=== PATIENT | male | born 1960 | race Caucasian/White ===

== ENCOUNTER 2025-08-10 08:07 | Day surgery (SDC) | payer MEDICARE ==
[~2025-08-10] VITALS: Ht 185.4 cm; Wt 156.9 kg
[~2025-08-10 08:07] MED LIST: ASCO500 PO; ASPI81CH PO; ATEN50 PO; Actos30 MG PO; LISI20 PO; LOVA20 PO; METF500 PO
[2025-08-10 08:35] VITALS: BP 187/89
--- NOTE | 2025-08-10 08:57 | NUR ---
Ambulatory in Day SurgeryPre-Op teaching done. Pt verbalizes understanding. History, Chart, Medications and Allergies reviewed before start of procedure.Patient confirms NPO status and agrees with scheduled surgery. Patient States Post-Procedure ride home has been arranged.
--- NOTE | 2025-08-10 08:57 | NUR ---
PT REPORTS HE HAS UPPER AND LOWER DENTURES AND HE LEFT THEM AT HOME
--- NOTE | 2025-08-10 09:17 | NUR ---
08/10/25 0917 [facility] [place] History, Chart, Medications and Allergies reviewed before start of procedure.MONITOR INTACT WITH CONTINUOUS PULSE OXIMETRY, CONTINUOUS END TITAL CO2, 3-LEAD EKG AND INTERMITTENT BLOOD PRESSURE.3-LEAD EKG REVIEWED WITH PHYSICIAN PRIOR TO START OF PROCEDURE.O2 VIA POM INTACT THROUGHOUT SEDATION/PROCEDURE.See Anesthesia record.
[2025-08-10 09:55] VITALS: BP 148/73
[2025-08-10 10:10] VITALS: BP 154/85
--- NOTE | 2025-08-10 10:17 | NUR ---
DISCHARGE NOTE PT A&OX4, BREATHING RA, VSS, NO COMPLAINTS, TOLERATING PO FLUIDS. PT DRESSED INDEPENDENTLY. Patient up to Ambulate independently. Gait steady. Discharge instructions reviewed with patient. Patient verbalizes understanding. Copy given to patient to take home. Discharged via wheelchair to private car for ride home.
== END 2025-08-10 10:15 | disposition home or self-care (01) ==
LOC: ORSCMMR 08:07 → ORD 09:45 → ORSCMMR 10:15
PROVIDERS: Internal Medicine Gastroenterology
PROC: 0DBN8ZX Excision of Sigmoid Colon, Via Natural or Artificial Opening Endoscopic, Diagnostic (ICD-10-PCS; principal; 2025-08-10 09:45)
PROC: 0DBM8ZX Excision of Descending Colon, Via Natural or Artificial Opening Endoscopic, Diagnostic (ICD-10-PCS; principal; 2025-08-10 09:45)
DX: Z12.11 Encounter for screening for malignant neoplasm of colon (principal); K63.5 Polyp of colon; G47.33 Obstructive sleep apnea (adult) (pediatric); E11.9 Type 2 diabetes mellitus without complications; I25.10 Atherosclerotic heart disease of native coronary artery without angina pectoris; E66.01 Morbid (severe) obesity due to excess calories; Z68.42 Body mass index [BMI] 45.0-49.9, adult; Z79.82 Long term (current) use of aspirin; Z79.84 Long term (current) use of oral hypoglycemic drugs; Z79.899 Other long term (current) drug therapy
CPT/HCPCS: 82947; 88305; J2704; J7120